=== PATIENT | female | born 1950 | race Caucasian/White ===

== ENCOUNTER 2024-06-05 20:04 | Observation (INO) ==
[2024-06-05] MEDS ORDERED: Albuterol/Ipratropium NEB.SOL (2.5/0.5 MG) 3 ML NEB.SOLN ONE (20:11)
[2024-06-05] MEDS: Albuterol/Ipratropium NEB.SOL (2.5/0.5 MG) 3 ML NEB.SOLN INH ONE ×2 (20:18→20:56)
[2024-06-05 20:37] LABS: ABS Basophils 0.1 10^3/uL (0.0-0.1); ABS Eosinophils 0.1 10^3/uL (0.0-0.5); ABS Lymphocytes 2.9 10^3/uL (1.0-4.8); ABS Monocytes 0.9 10^3/uL (0.0-0.9); ABS Neutrophils 5.8 10^3/uL (1.5-7.6); Eosinophil % 1.5 %; Hematocrit 27.1 % (35-45); Hemoglobin 8.9 g/dL (11.5-14.3); Lymphocyte % 29.6 %; Mean Corpuscular Hemoglobin 27.2 pg (27-33); Mean Corpuscular Hgb Conc 32.6 g/dL (31-36); Mean Corpuscular Volume 83.5 fL (80-97); Mean Platelet Volume 7.4 fL (7.5-11.2); Platelet Count 326 10^3/uL (150-450); Red Blood Count 3.25 10^6/uL (3.63-4.92); Red Cell Distribution Width 18.2 % (12-17); White Blood Count 9.9 10^3/uL (3.8-11.8)
[2024-06-05 20:45] LABS: INR 1.02 (0.85-1.14)
[2024-06-05 21:12] LABS: Albumin 3.8 g/dL (3.5-5.7); Albumin/Globulin Ratio 1.2 (1-3); Calcium 9.1 mg/dL (8.6-10.3); Creatinine, Serum 0.86 mg/dL (0.51-0.95); Globulin 3.1 g/dL (2-4); Potassium 4.3 mmol/L (3.5-5.0); Total Bilirubin 0.3 mg/dL (0.2-1.0); Total Protein 6.9 g/dL (6.4-8.9); eGFR CKD-EPI 71.3 (>60)
[2024-06-05] MEDS: cefTRIAXone 1 gm/50 mL D5W 1 GM/50 ML BAG IV ONE (21:20)
[2024-06-05] MEDS: Azithromycin 500 mg/250 ml NS 500 MG/250 ML BAG IVPB ONE (21:20)
[2024-06-05 22:07] LABS: High Sensitivity Troponin 1 Hr 153 pg/mL (<15)
[2024-06-06] MEDS: Heparin DRIP 25,000 UNITS BAG 25,000 UNITS/250 ML BAG IV SCH (01:12)
[2024-06-06] MEDS: Heparin 5000 UNITS/ML 1 mL VIAL IV SCH (01:13)
[2024-06-06] MEDS ORDERED: Dextrose 50% Syringe 50 ml 25 GM/50 ML SYRINGE IV PUSH PRN (02:29)
[2024-06-06] MEDS: Iodixanol 320 (CONTRAST) 100 ML SDV IV ONE (02:31)
[2024-06-06] MEDS: Albuterol/Ipratropium NEB.SOL (2.5/0.5 MG) 3 ML NEB.SOLN INH SCH (02:54)
[2024-06-06] MEDS ORDERED: Sulfur Hexaflouride MICROSPHR 25 MG VIAL IV PRN (04:52)
[2024-06-06] MEDS: Furosemide 20 mg/2 ml IV VIAL IV SLOW PU ONE (04:58)
[2024-06-06 05:34] LABS: ABS Lymphocytes 0.8 10^3/uL (1.0-4.8); ABS Monocytes 0.1 10^3/uL (0.0-0.9); ABS Neutrophils 7.9 10^3/uL (1.5-7.6); Eosinophil % 0.1 %; Hematocrit 26.8 % (35-45); Lymphocyte % 9.3 %; Mean Corpuscular Hgb Conc 33.5 g/dL (31-36); Mean Corpuscular Volume 83.8 fL (80-97); Mean Platelet Volume 7.4 fL (7.5-11.2); Platelet Count 326 10^3/uL (150-450); Red Cell Distribution Width 18.2 % (12-17); White Blood Count 8.9 10^3/uL (3.8-11.8)
[2024-06-06 06:36] LABS: % Iron Saturation 5 % (15-55); .Transferrin 302 mg/dL (203-362); Anion Gap 11 mmol/L (2-16); Blood Urea Nitrogen 14 mg/dL (6-24); CO2 Carbon Dioxide 18 mmol/L (22-32); Calcium 8.7 mg/dL (8.6-10.3); Chloride 106 mmol/L (101-111); Cholesterol 109 mg/dL; Creatinine, Serum 0.97 mg/dL (0.51-0.95); Glucose 233 mg/dL (70-100); HDL Cholesterol 37.8 mg/dL; Iron 20 ug/dL (50-212); LDL Cholesterol 52 mg/dL; Potassium 4.2 mmol/L (3.5-5.0); Sodium 135 mmol/L (135-145); Total Iron Binding Capacity 423 mcg/dL (250-450); Triglycerides 97 mg/dL; Unsaturated Iron Binding 403 ug/dL; eGFR CKD-EPI 61.7 (>60)
[2024-06-06 06:57] LABS: Ferritin 27.6 ng/mL (11-307)
[2024-06-06 07:00] LABS: Folate > 20.00 ng/mL (5.90-24.80)
[2024-06-06 07:01] LABS: Vitamin B12 502 pg/mL (180-914)
[2024-06-06 09:21] LABS: C Reactive Protein 28.58 mg/L (<8.01)
[2024-06-06 09:33] LABS: High Sensitivity Troponin 3 Hr 98 pg/mL (<15)
[2024-06-06] MEDS: Furosemide 20 mg/2 ml IV VIAL IV ONE ×2 (09:55→12:52)
[2024-06-06] MEDS: Ferric Gluconate IV 250 MG in NS 0.9% 250 ml 200 ML IVPB SCH (17:59)
[2024-06-06] MEDS ORDERED: cefTRIAXone 1 gm/50 mL D5W 1 GM/50 ML BAG IV SCH (21:00)
[2024-06-06] MEDS ORDERED: Azithromycin 250 MG in NS 0.9% 250 ml 250 ML IVPB SCH (22:00)
[2024-06-07 04:32] LABS: ABS Basophils 0.1 10^3/uL (0.0-0.1); ABS Monocytes 1.3 10^3/uL (0.0-0.9); ABS Neutrophils 7.9 10^3/uL (1.5-7.6); Eosinophil % 0.3 %; Hematocrit 23.1 % (35-45); Hemoglobin 7.7 g/dL (11.5-14.3); Lymphocyte % 24.3 %; Mean Corpuscular Hemoglobin 27.5 pg (27-33); Mean Corpuscular Hgb Conc 33.1 g/dL (31-36); Mean Platelet Volume 7.5 fL (7.5-11.2); Platelet Count 295 10^3/uL (150-450); Red Blood Count 2.78 10^6/uL (3.63-4.92); Red Cell Distribution Width 18.1 % (12-17); White Blood Count 12.4 10^3/uL (3.8-11.8)
[2024-06-07 05:16] LABS: Calcium 8.7 mg/dL (8.6-10.3); Creatinine, Serum 1.22 mg/dL (0.51-0.95); Magnesium 1.9 mg/dL (1.9-2.7); Potassium 3.8 mmol/L (3.5-5.0); eGFR CKD-EPI 46.9 (>60)
[2024-06-07] MEDS ORDERED: Senna TAB 8.6 mg TAB PO PRN (07:15)
[2024-06-07] MEDS ORDERED: Polyethylene Glycol 3350 17 GM PACKET PO PRN (07:16)
[2024-06-07] MEDS: Magnesium Sulfate IV 1GM/100ML 1 GM/100 ML BAG IV ONE (10:39)
[2024-06-07] MEDS ORDERED: Etomidate 20 mg/10 ml 2 MG/ML 10 ml VIAL ONE (12:43)
[2024-06-07] MEDS ORDERED: fentaNYL 100 mcg/2 ml 50 MCG/ML VIAL ONE (12:44)
[2024-06-07] MEDS ORDERED: Phenylephrine 40 mcg/mL 10mL (400mcg) SYRINGE ONE (12:44)
[2024-06-07] MEDS ORDERED: Propofol 10 MG/ML 20 ML BTL ONE (12:44)
[2024-06-07] MEDS ORDERED: PEG 3000 GI LAVAGE 1 GALLON PO ONE (13:36)
[2024-06-07] MEDS ORDERED: Heparin DRIP 25,000 UNITS BAG 25,000 UNITS/250 ML BAG IV SCH (14:15)
[2024-06-07] MEDS: Albuterol/Ipratropium NEB.SOL (2.5/0.5 MG) 3 ML NEB.SOLN INH PRN (14:42)
[2024-06-07 14:53] LABS: ABS Basophils 0.1 10^3/uL (0.0-0.1); ABS Eosinophils 0.1 10^3/uL (0.0-0.5); ABS Monocytes 1.3 10^3/uL (0.0-0.9); ABS Neutrophils 6.1 10^3/uL (1.5-7.6); ABS Nucleated RBC 0.01 10^3/ul; Eosinophil % 1.3 %; Hematocrit 25.7 % (35-45); Hemoglobin 8.5 g/dL (11.5-14.3); Lymphocyte % 34.2 %; Mean Corpuscular Hemoglobin 27.7 pg (27-33); Mean Corpuscular Hgb Conc 33.1 g/dL (31-36); Mean Corpuscular Volume 83.8 fL (80-97); Mean Platelet Volume 7.5 fL (7.5-11.2); Nucleated Red Blood Cells % 0.1 %/100WBC (0.0-0.8); Platelet Count 304 10^3/uL (150-450); Red Blood Count 3.07 10^6/uL (3.63-4.92); Red Cell Distribution Width 18.4 % (12-17); White Blood Count 11.6 10^3/uL (3.8-11.8)
[2024-06-07] MEDS ORDERED: Heparin 5000 UNITS/ML 1 mL VIAL IV SCH (15:00)
[2024-06-07 19:59] VITALS: BP 123/61
== END 2024-06-07 21:00 | disposition short-term general hospital (02) ==
LOC: EDHOLD 20:04 → ED 20:04 → SUATTDRO 06-06 02:18 → MEDTELE 06-06 11:48
PROVIDERS: ADMIT Internal Medicine; ATTEND Internal Medicine
PROC: O.GIEGD (2024-06-07 12:50)